=== PATIENT | male | born 1965 ===

== ENCOUNTER 2022-01-25 10:03 | Outpatient (CLI) | payer OTHER, SELFPAY ==
--- NOTE | 2022-01-25 11:30 | NEURO_ITS ---
Impression: # Complains of numbness of legs. History of lower back surgery. # Neuropathy involving motor more than sensory. # Absent right sural sensory response could be related to back surgery. # Abnormal needle/EMG exam in the right EDB could also be related to back surgery. # Clinical correlation recommended. Nerve Conduction Studies Anti Sensory Summary Table Stim Site NR Peak (ms) P-T Amp (?V) Site1 Site2 Delta-P (ms) Dist (cm) Iban (m/s) Left Sup Fibular Anti Sensory (Ant Lat Mall) 14 cm 3.6 4.3 14 cm Ant Lat Mall 3.6 16.0 44 Right Sup Fibular Anti Sensory (Ant Lat Mall) 14 cm 3.7 8.3 14 cm Ant Lat Mall 3.7 16.0 43 Left Sural Anti Sensory (Lat Mall) Calf 3.8 5.7 Calf Lat Mall 3.8 16.0 42 Right Sural Anti Sensory (Lat Mall) NO RESPONSE Calf NR Calf Lat Mall 16.0 Motor Summary Table Stim Site NR Onset (ms) O-P Amp (mV) Site1 Site2 Delta-0 (ms) Dist (cm) Iban (m/s) Left Peroneal Motor (Vastus Med) Ankle 5.7 1.2 Popit Ankle 11.3 40.0 35 Popit 17.0 1.0 Right Peroneal Motor (Vastus Med) Ankle 5.2 2.5 Popit Ankle 10.7 38.0 36 Popit 15.9 2.2 Left Tibial Motor (Abd Garcia Brev) Ankle 5.3 2.4 Knee Ankle 10.8 43.0 40 Knee 16.1 1.3 Right Tibial Motor (Abd Garcia Brev) Ankle 5.3 3.3 Knee Ankle 11.7 43.0 37 Knee 17.0 1.6 F Wave Studies NR F-Lat (ms) L-R F-Lat (ms) Left Peroneal (Mrkrs) (EDB) 57.21 0.93 Right Peroneal (Mrkrs) (EDB) 58.14 0.93 Left Tibial (Mrkrs) (Abd Hallucis) 58.52 1.42 Right Tibial (Mrkrs) (Abd Hallucis) 57.10 1.42 EMG Side Muscle Nerve Root Ins Act Fibs Amp Dur Recrt Comment Right AntTibialis Dp Br Fibular L4-5 Nml Nml Nml Nml Nml Right Gastroc Tibial S1-2 Nml Nml Nml Nml Nml Right Fibularis Long Sup Br Fibular L5-S1 Nml Nml Nml Nml Nml Right Flex Dig Long Tibial L5-S2 Nml Nml Nml Nml Nml Right Ext Dig Brev Dp Br Fibular L5, S1 Nml Nml Incr >12ms Reduced Left AntTibialis Dp Br Fibular L4-5 Nml Nml Nml Nml Nml Left Gastroc Tibial S1-2 Nml Nml Nml Nml Nml Left Fibularis Long Sup Br Fibular L5-S1 Nml Nml Nml Nml Nml Left Flex Dig Long Tibial L5-S2 Nml Nml Nml Nml Nml Left Ext Dig Brev Dp Br Fibular L5, S1 Nml Nml Nml Nml Nml MTDD
== END 2022-01-25 10:04 | disposition home or self-care (01) ==
PROVIDERS: PCP Family Medicine; Visit Provider Family Medicine
DX: R20.0 Anesthesia of skin (principal); G62.9 Polyneuropathy, unspecified; R94.131 Abnormal electromyogram [EMG]
CPT/HCPCS: 95886; 95910

== ENCOUNTER 2023-12-06 11:52 | Outpatient (CLI) | payer OTHER, SELFPAY ==
--- NOTE | ~2023-12-06 | CT_ITS ---
CT Scan of the Chest without Contrast: Clinical Indication: Lung cancer screening, history of nicotine dependence Technique: Contiguous sections were acquired throughout the chest without intravenous contrast. Dose reduction technique was used on this scan by utilizing automated exposure control and iterative recon struction technique. The dose-length product (DLP) was 191.35 mGy-cm. Findings: There is no evidence of any significant mediastinal, hilar or axillary lymphadenopathy. Also subcarin al lymph nodes present. Atherosclerotic calcifications are present. There is no evidence of pleural or pericardial effusion. The lungs are clear, aside from several calcified granulomas. Images through the upper abdomen reveal no abnormalities. Impression: Lung RADS 2: Benign appearance. [address] advised. Reviewed, dictated and finalized at location . Impression: Lung RADS 2: Benign appearance. [address] advised.
== END 2023-12-06 11:53 ==
PROVIDERS: PCP Family Medicine; Visit Provider Family Medicine
DX: Z12.2 Encounter for screening for malignant neoplasm of respiratory organs (principal); Z87.891 Personal history of nicotine dependence
CPT/HCPCS: 71271